=== PATIENT | female | born 1995 | race African-American/Black ===

== ENCOUNTER 2020-02-20 15:10 | Emergency (ER) | payer OTHER ==
[~2020-02-20] VITALS: Ht 167.6 cm; Wt 77.1 kg
[2020-02-20 15:02] VITALS: BP 101/58
--- NOTE | 2020-02-20 15:02 | NUR ---
ED Nurse Note: pt walked in to ed for C/o sorethroat since yesterday. temp at triage is 100.5 pt took ibuprofen last night.
[~2020-02-20 15:10] MED LIST: IBUPROFEN600 MG ORAL; LIDODERM700 M1 TOPIC; ROBAXIN-750750 MG PO
--- NOTE | 2020-02-20 15:31 | NUR ---
ED Nurse Note: DONALD Isidro assessing pt at tent at this time.
--- NOTE | 2020-02-20 15:40 | Emergency Room Report ---
History of Present Illness General Chief Complaint: Sore Throat Source: Patient Present Illness HPI 24-year-old female with no signal past medical history here complaining of 3 days of 10 on 10 sore throat, loss of taste, fever and chills. Appears to be febrile upon arrival. Is here with her girlfriend who also presents with similar symptoms and was exposed to a confirmed case of COVID at work. Denies any abdominal pain, nausea vomiting diarrhea, cough and congestion, shortness of breath. Has not taken medication for symptom relief. Denies . Allergies: Coded Allergies: No Known Allergies (Unverified , 02/20/20) COVID-19 Screening Contact w/high risk pt: No Recent Travel to affected area: No Experienced COVID-19 symptoms?: Yes COVID-19 symptoms experienced: Flu-Like Symptoms COVID-19 Testing performed PROJECT COACH: No Patient History Past Medical History: see triage record Past Surgical History: none Pertinent Family History: none Last Menstrual Period: na Now: No Immunizations: UTD Reviewed Nursing Documentation: PMH: Agreed; PSxH: Agreed Nursing Documentation-PMH Hx Cardiac Problems: No Hx Hypertension: No Hx Pacemaker: No Hx Asthma: Yes Hx COPD: No Hx Diabetes: No Hx Cancer: No Hx Gastrointestinal Problems: No Hx Dialysis: No Hx Neurological Problems: No Hx Cerebrovascular Accident: No Hx Seizures: No Review of Systems All Other Systems: negative except mentioned in HPI Physical Exam Vital Signs Date Time Temp Pulse Resp B/P (MAP) Pulse Ox O2 Delivery O2 Flow Rate FiO2 02/20/20 14:59 100.6 02/20/20 14:59 99 18 101/58 (72) 99 Room Air Sp02 EP Interpretation: reviewed, normal General Appearance: no apparent distress, alert, GCS 15, non-toxic Head: normocephalic, atraumatic Eyes: bilateral eye normal inspection, bilateral eye PERRL ENT: hearing grossly normal, normal voice, tonsillar swelling, tonsillar exudate Neck: full range of motion, supple/symm/no masses Respiratory: chest non-tender, lungs clear, normal breath sounds, speaking full sentences Cardiovascular #1: regular rate, rhythm, no edema Gastrointestinal: normal bowel sounds, non tender, soft, non-distended, no guarding, no rebound Musculoskeletal: back normal Neurologic: alert, motor strength/tone normal, oriented x3, sensory intact, responsive, speech normal Psychiatric: judgement/insight normal, memory normal, mood/affect normal, no suicidal/homicidal ideation Skin: no rash Lymphatic: normal inspection Medical Decision Making PA Attestation All my diagnosis and treatment plans were reviewed ad discussed with my supervising physician Dr. Hensley Diagnostic Impression: Primary Impression: Suspected COVID-19 virus infection Additional Impression: Tonsillitis with exudate ER Course 24-year-old female with no signal past medical history here complaining of 3 days of 10 on 10 sore throat, loss of taste, fever and chills. Appears to be febrile upon arrival. Is here with her girlfriend who also presents with similar symptoms and was exposed to a confirmed case of COVID at work. Denies any abdominal pain, nausea vomiting diarrhea, cough and congestion, shortness of breath. Has not taken medication for symptom relief. Denies . Ddx considered but are not limited to: Coronavirus, strep pharyngitis, URI, tonsillitis, peritonsillar abscess, influneza Vital signs: are WNL, pt. is afebrile H&PE are most consistent with: Suspected COVID-19 infection, tonsillitis with exudate ORDERS: Azithromycin, Tylenol, lidocaine viscous, Claritin-D ED INTERVENTIONS: None required at this time. DISCHARGE: At this time pt. is stable for d/c to home. Will provide printed patient care instructions, and any necessary prescriptions. Care plan and follow up instructions have been discussed with the patient prior to discharge. Patient to follow primary doctor, also get tested for COVID-[address], if worsening symptoms return to the emergency room Last Vital Signs Date Time Temp Pulse Resp B/P (MAP) Pulse Ox O2 Delivery O2 Flow Rate FiO2 02/20/20 15:02 100.6 99 18 101/58 99 Room Air Disposition: HOME, SELF-CARE Condition: Stable Scripts Lidocaine HCl (Lidocaine HCl Viscous) 100 Ml Solution 10 ML MM TID, #100 ML Prov: Sanna Johansen 02/20/20 Loratadine/Pseudoephedrine (CLARITIN-D 12 HOUR TABLET) 1 Each Tab.er.12h 1 TAB ORAL EVERY 12 HOURS, #20 TAB Prov: Sanna Johansen 02/20/20 Acetaminophen (Tylenol) 325 Mg Tablet 650 MG ORAL Q6H PRN for Prn Pain/Headache/Temp > 101, #30 TAB 0 Refills Prov: Sanna Johansen 02/20/20 Azithromycin* (ZITHROMAX*) 250 Mg Tablet 250 MG ORAL DAILY, #6 TAB 0 Refills Take two tables once daily for 1 day, then one tablet once daily for 4 days. Prov: Sanna Johansen 02/20/20 Patient Instructions: Tonsillitis Additional Instructions: Take medication as directed, follow-up with your primary doctor, you need to stay home for self quarantine due to Covid 19 precautions for 14 days Sanna Johansen February 20, 2020 15:40
[2020-02-20] MEDS ORDERED: LIDOCAINE20 MG/1 M1 MM (15:46)
[2020-02-20] MEDS ORDERED: CLARITIN-D 121 EAC1 ORAL (15:46)
[2020-02-20] MEDS ORDERED: TYLENOL325 MG ORAL (15:46)
[2020-02-20] MEDS ORDERED: ZITHROMAX250 MG ORAL (15:46)
[2020-02-20 15:54] VITALS: BP 105/70
--- NOTE | 2020-02-20 15:54 | NUR ---
ER DISCHARGE NOTE: Patient is cleared to be discharged per ERMD, pt is aox4, on room air, with stable vital signs. pt was given dc and prescription instructions, pt was able to verbalize understanding, pt id band removed without complications. pt is able to ambulate with steady gait. pt took all belongings.
== END 2020-02-20 15:55 | disposition home or self-care (01) ==
LOC: EDBD 15:10 → EMR 15:30
DX: Z20.828 Contact with and (suspected) exposure to other viral communicable diseases (principal); J03.90 Acute tonsillitis, unspecified; J45.909 Unspecified asthma, uncomplicated
CPT/HCPCS: 99282

== ENCOUNTER 2020-07-19 16:21 | Emergency (ER) | payer OTHER ==
[~2020-07-19] VITALS: Ht 170.2 cm; Wt 81.6 kg
[~2020-07-19 16:21] MED LIST changes: +CLARITIN-D 121 EAC1 ORAL; +LIDOCAINE20 MG/1 M1 MM; +TYLENOL325 MG ORAL; +ZITHROMAX250 MG ORAL
--- NOTE | 2020-07-19 16:36 | NUR ---
ED Nurse Note: Pt ambulated to ed c/o right side throbbing headache with congestion fo x 3 days.
[2020-07-19 16:37] VITALS: BP 112/69
--- NOTE | 2020-07-19 16:41 | Emergency Room Report ---
History of Present Illness General Chief Complaint: Headache Present Illness HPI 25-year-old otherwise healthy female with no relevant past medical history and no surgical history here with generalized weakness, cough, congestion. Patient says her symptoms have been ongoing for 5 days. Has an appointment to get checked for Covid tomorrow. Does not know whether she has been exposed to Covid. She has been taking Claritin and Benadryl as needed for her symptoms with intermittent relief. Denies fevers, chills, chest pain, palpitations, shortness of breath, diarrhea, abdominal pain, nausea, vomiting, diarrhea, dysuria. 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 Patient History Last Menstrual Period: 07/17/2020 Nursing Documentation-H Hx Cardiac Problems: No Hx Hypertension: No Hx Pacemaker: No Hx Asthma: Yes Hx COPD: No Hx Diabetes: No Hx Cancer: No Hx Gastrointestinal Problems: No Hx Dialysis: No Hx Neurological Problems: No Hx Cerebrovascular Accident: No Hx Seizures: No Review of Systems All Other Systems: negative except mentioned in HPI Physical Exam Vital Signs Date Time Temp Pulse Resp B/P (MAP) Pulse Ox O2 Delivery O2 Flow Rate FiO2 07/19/20 16:28 98.8 95 18 112/69 (83) 99 Room Air Sp02 EP Interpretation: reviewed, normal General Appearance: no apparent distress, alert, non-toxic Head: normocephalic, atraumatic Eyes: bilateral eye normal inspection, bilateral eye PERRL ENT: hearing grossly normal, normal pharynx, no angioedema, normal voice, other - Nasal congestion Neck: full range of motion, supple/symm/no masses Respiratory: chest non-tender, lungs clear, normal breath sounds, speaking full sentences Cardiovascular #1: regular rate, rhythm, no edema Cardiovascular #2: 2+ carotid (R), 2+ carotid (L), 2+ radial (R), 2+ radial (L), 2+ dorsalis pedis (R), 2+ dorsalis pedis (L) Gastrointestinal: normal bowel sounds, non tender, soft, non-distended, no guarding, no rebound Rectal: deferred Genitourinary: normal inspection, no CVA tenderness Musculoskeletal: back normal, normal range of motion, gait/station normal, non- tender Neurologic: alert, motor strength/tone normal, oriented x3, sensory intact, responsive, speech normal Psychiatric: judgement/insight normal, memory normal, mood/affect normal, no suicidal/homicidal ideation Lymphatic: no adenopathy Medical Decision Making Diagnostic Impression: Primary Impression: Viral infection Additional Impression: Cough ER Course Chest x-ray: Indication cough: Unremarkable chest x-ray. No consolidations. No bony abnormalities. No free air under the diaphragm. Heart borders normal 25-year-old female here with generalized weakness, dry cough, subjective fever for several days. Patient normal vital signs in the emergency department including a normal temperature. She was nontoxic-appearing and has no relevant past medical history. She was given 600 mg ibuprofen in the emergency department with some resolution of her generalized complaints. She has an appointment to be tested for COVID-19 tomorrow. No indication for testing or at this time given the low severity of her symptoms. Chest x-ray unremarkable. Urinalysis normal. Urine test negative. Patient will follow up with a primary care provider. Discharged in stable condition. Last Vital Signs Date Time Temp Pulse Resp B/P (MAP) Pulse Ox O2 Delivery O2 Flow Rate FiO2 07/19/20 16:37 98.8 71 18 112/69 99 Room Air Scripts Albuterol Sulfate* (Albuterol Sulfate Hfa*) 8.5 Gm Hfa.aer.ad 2 PUFF INH Q3H, #1 INH Prov: Rony Anderson M.D. 07/19/20 Pseudoephedrine Hcl* (SUDAFED*) 60 Mg Tablet 60 MG PO Q6H, #14 TAB Prov: Rony Anderson M.D. 07/19/20 Ibuprofen* (MOTRIN*) 600 Mg Tablet 600 MG ORAL Q6H PRN for FOR PAIN, #20 TAB 0 Refills Prov: Rony Anderson M.D. 07/19/20 Rony Anderson M.D. Jul 19, 2020 16:41
[2020-07-19] MEDS ORDERED: IBUPROFEN600 M1 ORAL (16:43)
[2020-07-19] MEDS ORDERED: PSEUDOEPHEDRINE60 MG PO (16:43)
--- NOTE | 2020-07-19 16:43 | NUR ---
ED Nurse Note: xray at bedside
[2020-07-19 17:23] LABS: APPEARANCE,URINE CLEAR; BILIRUBIN, URINE NEGATIVE (NEGATIVE); COLOR,URINE PALE YELLOW; GLUCOSE, URINE (UA) NEGATIVE (NEGATIVE); KETONES,URINE NEGATIVE (NEGATIVE); LEUKOCYTE ESTERASE ,URINE NEGATIVE (NEGATIVE); NITRITE,URINE NEGATIVE (NEGATIVE); PH,URINE 7 (4.5-8.0); PROTEIN,URINE NEGATIVE (NEGATIVE); UROBILINOGEN,URINE NORMAL MG/DL (0.0-1.0)
[2020-07-19] MEDS ORDERED: ALBUTEROL SULF8.5 G1 INH (17:31)
[2020-07-19 17:32] VITALS: BP 115/79
--- NOTE | 2020-07-19 17:32 | NUR ---
ER DISCHARGE NOTE: Patient is cleared to be discharged per ERMD, pt is aox4, on room air, with stable vital signs. pt was given dc and prescription instructions, pt was able to verbalize understanding, pt id band removed. pt is able to ambulate with steady gait. pt took all belongings.
--- NOTE | 2020-07-20 15:55 | Diagnostic Imaging Report ---
Indication: Reason For Exam: COUGH Technique: Single AP view of the chest. Comparison: None. Findings: The cardiomediastinal silhouette is within normal limits. There is no focal consolidation, pneumothorax or pleural effusion. Osseous structures demonstrate no acute abnormality. IMPRESSION: No radiographic evidence of acute cardiac pulmonary process.
== END 2020-07-19 17:33 | disposition home or self-care (01) ==
LOC: EMR 16:45
DX: B34.9 Viral infection, unspecified (principal); R05 Cough
CPT/HCPCS: 71045; 81003; 81025; Z7502; 99283